=== PATIENT | male | born 1975 | race Two or more races ===

== ENCOUNTER → 2016-05-03 | Emergency (ER) | payer MEDICAID, OTHER ==
[~2016-05-03] VITALS: Wt 81.2 kg
[~2016-05-03] MED LIST: IBUP-1542 PO; MAG355OR14 PO
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
[2016-05-03 19:39] VITALS: BP 120/85; PULSE 83; RESP 20; TEMP 98.8
== END | disposition home or self-care (01) ==
LOC: E/R 16:50 → MERGE 16:50
DX: R55 Syncope and collapse (principal)
CPT/HCPCS: 82962; 93005; Z7502

== ENCOUNTER 2016-06-06 03:57 | Emergency (ER) | payer MEDICAID ==
[~2016-06-06] VITALS: Ht 167.6 cm; Wt 98.5 kg
[2016-06-06 04:02] VITALS: Ht 167.6 cm; Wt 98.5 kg
[2016-06-06 04:51] LABS: ADD SCAN DIFF NO
[2016-06-06 05:00] LABS: BASOPHILS % 0.5 % (0.0-2.0); EOSINOPHILS # 0.3 10^3/ul (0.0-0.5); EOSINOPHILS % 3.1 % (0.0-7.0); HEMATOCRIT 46.4 % (42.0-52.0); HEMOGLOBIN 15.9 g/dl (14.0-18.0); LYMPHOCYTES # 3.3 10^3/ul (0.8-2.9); LYMPHOCYTES % 39.1 % (15.0-51.0); MEAN CORPUSCULAR HEMOGLOBIN 31.7 pg (29.0-33.0); MEAN CORPUSCULAR HGB CONC 34.3 g/dl (32.0-37.0); MEAN CORPUSCULAR VOLUME 92.4 fl (82.0-101.0); MEAN PLATELET VOLUME 10.3 fl (7.4-10.4); MONOCYTE # 0.8 10^3/ul (0.3-0.9); MONOCYTES % 9.1 % (0.0-11.0); NEUTROPHILS % 47.7 % (39.0-77.0); PLATELET COUNT 269 10^3/UL (140-415); RED BLOOD COUNT 5.02 10^6/ul (4.70-6.10); RED CELL DISTRIBUTION WIDTH 12.5 % (11.5-14.5); WHITE BLOOD COUNT 8.4 10^3/ul (4.8-10.8)
[2016-06-06 05:08] LABS: INR 0.94; PROTIME 12.6 Sec (12.2-14.2)
[2016-06-06 05:09] LABS: PARTIAL THROMBOPLASTIN TIME 29.8 Sec (25.0-35.0)
--- NOTE | 2016-06-06 05:16 | RADRPT ---
PROCEDURE: XR Chest. CLINICAL INDICATION: Chest pain. TECHNIQUE: AP Portable chest. COMPARISON: 11/22/2015 FINDINGS: The cardiomediastinal silhouette is normal. The lungs are clear. The osseous structures are unrema rkable. IMPRESSION: No acute findings. RPTAT: HIKT .Roberto Castillo MD, MD Date Time Electronically viewed and signed by .Roberto Castillo MD, MD on 06/06/2016 05:15 .T/
[2016-06-06 05:26] LABS: CHLORIDE 104 mmol/L (97-110); SODIUM 140 mmol/L (135-144)
[2016-06-06 05:29] LABS: CREATININE 0.82 mg/dl (0.61-1.24)
[2016-06-06 05:30] LABS: ANION GAP 16 (8-16); BLOOD UREA NITROGEN 19 mg/dl (7-20); CALCIUM 9.6 mg/dl (8.4-10.2); CARBON DIOXIDE 24 mmol/L (21-31); GLUCOSE 102 mg/dl (70-220)
[2016-06-06] MEDS ORDERED: LORA-441 PO (05:43)
[2016-06-06] MEDS ORDERED: ASPI325T4 PO (05:43)
--- NOTE | 2016-06-06 05:50 | ERD ---
ER Documentation Chief Complaint Date/Time DATE: 06/06/16 TIME: 05:49 Chief Complaint CHEST PRESSURE, LEFT ARM NUMBNESS STARTED 4 HRS AGO HPI This is a very pleasant 40-year-old male, chest pain left arm numbness started 4 hours ago. Patient's of the chest pain is reproducible to the touch and worse on movement. Patient states her normal under a lot of stress lately. Denies any fevers or chills. Denies any nausea vomiting. Denies any diaphoresis. Denies any shortness of breath. Patient has no family history of cardiac etiology. Patient denies history of smoking. Denies history of high blood pressure. Denies any other current complaints. ROS All systems reviewed and are negative except as per history of present illness. Medications Home Meds Active Scripts Aspirin* (Aspirin*) 325 Mg Tablet, 325 MG PO DAILY for 30 Days, TAB Prov:ELIDA ORDOÑEZ 06/06/16 Lorazepam* (Ativan*) 0.5 Mg Tablet, 0.5 MG PO Q8H Y for ANXIETY, #10 TAB Prov:ELIDA ORDOÑEZ 06/06/16 Mag Hydrox/Al Hydrox/Simeth (Maalox Advanced Suspension) 355 Ml Oral.susp, 2 TSP PO TID, #24 OZ Prov:LEVI LARA MD 11/22/15 Ibuprofen* (Ibuprofen*) 600 Mg Tablet, 600 MG PO Q8 for PAIN, #30 TAB Prov:LEVI LARA MD 11/22/15 Allergies Allergies: Coded Allergies: No Known Drug Allergy (Verified Allergy, Unknown, 11/23/15) PMhx/Soc History of Surgery: No Anesthesia Reaction: No Hx Neurological Disorder: No Hx Respiratory Disorders: No Hx Cardiac Disorders: No Hx Psychiatric Problems: No Hx Miscellaneous Medical Probl: Yes (prior syncopal episodes) Hx Alcohol Use: No Hx Substance Use: No Hx Tobacco Use: No Smoking Status: Unknown if ever smoked Physical Exam Vitals Vital Signs Date Time Temp Pulse Resp B/P Pulse Ox O2 Delivery O2 Flow Rate FiO2 06/06/16 05:31 98.1 65 18 124/83 99 Room Air 06/06/16 04:02 97.4 61 20 113/74 97 Physical Exam Const: [] Head: Atraumatic Eyes: Normal Conjunctiva ENT: Normal External Ears, Nose and Mouth. Neck: Full range of motion..~ No meningismus. Resp: Clear to auscultation bilaterally Cardio: Regular rate and rhythm, no murmurs Abd: Soft, non tender, non distended. Normal bowel sounds Skin: No petechiae or rashes Back: No midline or flank tenderness Ext: No cyanosis, or edema Neur: Awake and alert Psych: Normal Mood and Affect Result Diagram: 06/06/16 0415 06/06/16 0415 Results 24 hrs Laboratory Tests Test 06/06/16 04:15 White Blood Count 8.410^3/ul Red Blood Count 5.0210^6/ul Hemoglobin 15.9g/dl Hematocrit 46.4% Mean Corpuscular Volume 92.4fl Mean Corpuscular Hemoglobin 31.7pg Mean Corpuscular Hemoglobin Concent 34.3g/dl Red Cell Distribution Width 12.5% Platelet Count 26664^3/UL Mean Platelet Volume 10.3fl Neutrophils % 47.7% Lymphocytes % 39.1% Monocytes % 9.1% Eosinophils % 3.1% Basophils % 0.5% Nucleated Red Blood Cells % 0.0/100WBC Neutrophils # 4.010^3/ul Lymphocytes # 3.310^3/ul Monocytes # 0.810^3/ul Eosinophils # 0.310^3/ul Basophils # 0.010^3/ul Nucleated Red Blood Cells # 0.010^3/ul Prothrombin Time 12.6Sec Prothrombin Time Ratio 1.0 INR International Normalized Ratio 0.94 Activated Partial Thromboplast Time 29.8Sec Sodium Level 140mmol/L Potassium Level 4.0mmol/L Chloride Level 104mmol/L Carbon Dioxide Level 24mmol/L Anion Gap 16 Blood Urea Nitrogen 19mg/dl Creatinine 0.82mg/dl Glucose Level 102mg/dl Calcium Level 9.6mg/dl Troponin I Pending Procedures/[facility] EKG: Rate/Rhythm: [Normal Sinus Rhythm] QRS, ST, T-waves: [No changes consistent w/ acute ischemia] Impression: [No evidence of ischemia or arrhythmia] Chest X-ray 1V Interpreted by me: Soft Tissue: No acute abnormalities Bones: No acute abnormalities Mediastinum/Cardiac Silhouette/Lungs: [No acute abnormalities] Patient's thoracic symptoms have stabilized while in the department and are stable for outpatient follow up. Exam and work up not consistent w/ ischemia, arrhythmia, PE or dissection. Symptomology is consistent with chest wall pain secondary to generalized anxiety disorder. At this point is clinically stable. He will be discharged home with a short course of lorazepam on aspirin to follow-up with primary care physician for possible outpatient cardiology workup. Patient should return immediately for any return of chest wall pain via 911. Departure Diagnosis: Primary Impression: Chest pain Chest pain type: unspecified Qualified Code: R07.9 - Chest pain, unspecified type Condition: Stable Patient Instructions: Chest Pain, Uncertain Cause ELIDA ORDOÑEZ Jun 06, 2016 05:50
[2016-06-06 06:08] LABS: TROPONIN-I < 0.012 ng/ml (0.00-0.12)
[2016-06-06 06:09] VITALS: BP 105/82; PULSE 58; RESP 17; TEMP 98.1
== END 2016-06-06 06:12 | disposition home or self-care (01) ==
LOC: E/R 03:57
DX: R07.89 Other chest pain (principal)
CPT/HCPCS: 36415; 71010; 80048; 84484; 85025; 85610; 85730; 93005; Z7502

== ENCOUNTER 2017-10-29 02:14 | Inpatient (IN) | END 2017-10-30 11:15 | disposition home or self-care (01) | DRG 69 ==

== ENCOUNTER 2018-02-18 13:09 | Emergency (ER) | END 2018-02-18 14:27 | disposition home or self-care (01) ==